=== PATIENT | male | born 1970 | race Two or more races ===

== ENCOUNTER 2023-05-01 17:42 | Emergency (ER) | payer OTHER ==
[~2023-05-01] VITALS: Ht 188 cm; Wt 128.5 kg
[2023-05-01] MEDS ORDERED: DexAMETHasone SOD PHOS 10MG/1ML VIAL INJ IM ONE (22:30)
[2023-05-01] MEDS ORDERED: cefTRIAXone SOD 1,000 MG VL IM ONE (22:30)
[2023-05-01] MEDS ORDERED: NIRM1TAB5 PO (22:44)
[2023-05-01] MEDS ORDERED: AZIT-43 PO (22:44)
[2023-05-01] MEDS ORDERED: ACET500T58 PO (22:44)
[2023-05-01] MEDS ORDERED: PRED20TA2 PO (22:44)
[2023-05-01 22:55] VITALS: BP 127/65; PULSE 90; RESP 20; TEMP 97.6
[2023-05-01 23:40] VITALS: O2SAT 95
== END 2023-05-02 02:53 | disposition home or self-care (01) ==
LOC: ER 17:42
DX: U07.1 COVID-19 (principal); J06.9 Acute upper respiratory infection, unspecified; E11.9 Type 2 diabetes mellitus without complications; I10 Essential (primary) hypertension; E78.5 Hyperlipidemia, unspecified; I25.2 Old myocardial infarction
CPT/HCPCS: 96372; 99284; J0696; J1100